=== PATIENT | female | born 1990 | race Asian ===

== ENCOUNTER 2017-01-06 17:26 | Emergency (ER) | payer SELFPAY ==
[~2017-01-06] VITALS: Ht 160 cm; Wt 49.6 kg
[2017-01-06 17:34] VITALS: TEMP 36.9; Ht 160 cm; Wt 49.6 kg
[2017-01-06] MEDS ORDERED: SODIUM CHLORIDE 0.9% 1000ML 1,000 ML IV STA (18:13)
--- NOTE | 2017-01-06 18:26 | EMERGENCY ROOM VISIT NOTE ---
History Report prepared by Shanice: Jane Weinstein Under the Supervision of: Dr. Chiki Gary D.O. First contact with patient: 18:02 Chief Complaint: ABDOMINAL PAIN Stated Complaint: PAIN UNDER BELLY BUTTON Nursing Triage Summary: Abd pain. Pt states she had a positive test. Pain was there in the morning, none now. History of Present Illness The patient is a 26 year old female who presents to the Emergency Room with complaints of intermittent abdominal pain for the past 4 days. The pain is present under her belly button. She had a positive test 2 days ago. She has been 1 time before and had a full term baby. She did not have this type of pain with her first . She states that the pain feels like her premenstrual cramps. Her last period was 1 month ago. She denies having any pain currently. She has had some dizziness and lightheadedness when she stands up sometimes. She denies any urinary symptoms, vaginal bleeding, back pain, or fever. She denies any previous medical problems or surgeries. She denies any tobacco or alcohol use. Source of History: patient Onset: 4 days Position: abdomen Quality: cramping Timing: intermittent Associated Symptoms: No fevers, No back pain, No urinary symptoms Note: Pt has lightheadedness and dizziness when standing. Pt denies vaginal bleeding. Review of Systems See HPI for pertinent positives & negatives. A total of 10 systems reviewed and were otherwise negative. Past Medical & Surgical Surgical Problems: (1) Hx of LASIK Family History No pertinent family history stated. Social History Smoking Status: Never Smoker Housing Status: lives with family Current/Historical Medications Scheduled Cephalexin Monohydrate (Keflex), 500 MG PO QID Multivitamin (Multivitamin), 1 TAB PO DAILY Allergies Coded Allergies: No Known Allergies (Unverified , 01/06/17) Physical Exam Vital Signs Date Time Temp Pulse Resp B/P (MAP) Pulse Ox O2 Delivery O2 Flow Rate FiO2 01/06/17 21:02 65 18 106/70 98 01/06/17 19:34 66 16 102/56 98 Room Air 01/06/17 17:34 36.9 102 18 107/69 100 Room Air Physical Exam GENERAL: Patient is awake, alert, and in no acute distress. Patient is resting comfortably and showing no signs of anxiety EYES: The conjunctivae are clear. The pupils are round and reactive. EARS, NOSE, MOUTH AND THROAT: The nose is without any evidence of any deformity. Mucous membranes are moist tongue is midline NECK: The neck is nontender and supple. RESPIRATORY: Normal respiratory effort is noted there is no evidence of wheezing rhonchi or rales CARDIOVASCULAR: Regular rate and rhythm noted there no murmurs rubs or gallops normal S1 normal S2 GASTROINTESTINAL: The abdomen is soft with RLQ and suprapubic tenderness to palpation, no guarding or rigidity. Bedside US failed to reveal definite intrauterine . MUSCULOSKELETAL/EXTREMITIES: There is no evidence of gross deformity full range of motion is noted in the hips and shoulders SKIN: There is no obvious evidence of any rash. There are no petechiae, pallor or cyanosis noted. NEUROLOGIC: Patient is awake alert and oriented x3 Medical Decision & Procedures ER Provider Diagnostic Interpretation: Radiology results as stated below per my review and radiologist interpretation: APPENDIX ULTRASOUND HISTORY: Right lower quadrant pain. . COMPARISON: None. FINDINGS: Transabdominal scanning of the right lower quadrant was performed. The appendix was not identified. A small amount of fluid was noted within the right lower quadrant. IMPRESSION: 1. Nonvisualization of the appendix. This study is nondiagnostic in regards to evaluation for acute appendicitis. 2. Small amount of fluid within the right lower quadrant. Electronically signed by: Brandin Ferrer M.D. 01/06/2017 7:25 PM Dictated Date/Time: 01/06/2017 7:25 PM FIRST TRIMESTER ULTRASOUND CLINICAL HISTORY: . Pain. COMPARISON STUDY: No previous studies for comparison. TECHNIQUE: Transabdominal sonography of the pelvis was performed. The patient deferred transvaginal imaging. FINDINGS: Evaluation is suboptimal given the lack of transvaginal imaging. The uterus measures 10.6 x 6.3 x 6.8 cm. The endometrium is thickened and heterogeneous, measuring 3.5 cm in thickness. Note was made of a cystic structure within the upper aspect of the endometrium with a mean diameter of 0.51 cm which likely reflects a gestational sac. No pole or yolk sac was identified. An adjacent 0.81 cm hypoechoic focus may reflect a tiny subchorionic hematoma. The right ovary was normal, measuring 3.1 x 1 x 2.7 cm and the left ovary measured 4.2 x 3.7 x 2.9 cm. There is a 2.2 cm complex left ovarian lesion which may reflect a corpus luteal cyst. Color flow is identified within each ovary. IMPRESSION: 1. Probable intrauterine gestational sac identified with a mean sac diameter of 0.51 cm. No pole identified at this time. Suspected tiny subchorionic hematoma. Thickened, heterogeneous endometrium. The findings may reflect a normal early intrauterine gestation. Clinical follow-up, including serial beta hCG levels, is recommended. 2. Suboptimal evaluation given the lack of transvaginal imaging. 3. Corpus luteal/hemorrhagic cyst within the left ovary. Electronically signed by: Brandin Ferrer M.D. 01/06/2017 7:24 PM Dictated Date/Time: 01/06/2017 7:19 PM Laboratory Results 01/06/17 18:20 Red Blood Count 4.38, Mean Corpuscular Volume 85.8, Mean Corpuscular Hemoglobin 28.5, Mean Corpuscular Hemoglobin Concent 33.2, Mean Platelet Volume 9.1, Neutrophils (%) (Auto) 60.6, Lymphocytes (%) (Auto) 28.2, Monocytes (%) (Auto) 9.4, Eosinophils (%) (Auto) 1.5, Basophils (%) (Auto) 0.2, Neutrophils # (Auto) 5.57, Lymphocytes # (Auto) 2.59, Monocytes # (Auto) 0.86, Eosinophils # (Auto) 0.14, Basophils # (Auto) 0.02 01/06/17 18:20 Test 01/06/17 18:20 White Blood Count 9.19 K/uL (4.8-10.8) Red Blood Count 4.38 M/uL (4.2-5.4) Hemoglobin 12.5 g/dL (12.0-16.0) Hematocrit 37.6 % (37-47) Mean Corpuscular Volume 85.8 fL (80-100) Mean Corpuscular Hemoglobin 28.5 pg (25-34) Mean Corpuscular Hemoglobin Concent 33.2 g/dl (32-36) Platelet Count 347 K/uL (130-400) Mean Platelet Volume 9.1 fL (7.4-10.4) Neutrophils (%) (Auto) 60.6 % Lymphocytes (%) (Auto) 28.2 % Monocytes (%) (Auto) 9.4 % Eosinophils (%) (Auto) 1.5 % Basophils (%) (Auto) 0.2 % Neutrophils # (Auto) 5.57 K/uL (1.4-6.5) Lymphocytes # (Auto) 2.59 K/uL (1.2-3.4) Monocytes # (Auto) 0.86 K/uL (0.11-0.59) Eosinophils # (Auto) 0.14 K/uL (0-0.5) Basophils # (Auto) 0.02 K/uL (0-0.2) RDW Standard Deviation 42.9 fL (36.4-46.3) RDW Coefficient of Variation 13.6 % (11.5-14.5) Immature Granulocyte % (Auto) 0.1 % Immature Granulocyte # (Auto) 0.01 K/uL (0.00-0.02) Prothrombin Time 10.4 SECONDS (9.0-12.0) Prothromb Time International Ratio 1.0 (0.9-1.1) Activated Partial Thromboplast Time 26.3 SECONDS (21.0-31.0) Partial Thromboplastin Ratio 1.0 Urine Color YELLOW Urine Appearance CLEAR (CLEAR) Urine pH 6.0 (4.5-7.5) Urine Specific [place] 1.026 (1.000-1.030) Urine Protein NEG (NEG) Urine Glucose (UA) NEG (NEG) Urine Ketones NEG (NEG) Urine Occult Blood NEG (NEG) Urine Nitrite NEG (NEG) Urine Bilirubin NEG (NEG) Urine Urobilinogen NEG (NEG) Urine Leukocyte Esterase SMALL (NEG) Urine WBC (Auto) >30 /hpf (0-5) Urine RBC (Auto) 0-4 /hpf (0-4) Urine Hyaline Casts (Auto) 5-10 /lpf (0-5) Urine Epithelial Cells (Auto) >30 /lpf (0-5) Urine Bacteria (Auto) 1+ (NEG) Urine Pathogenic Casts /lpf (0) Anion Gap 6.0 mmol/L (3-11) Est Creatinine Clear Calc Drug Dose 123.5 ml/min Estimated GFR () > 150.0 Estimated GFR (Non- 131.3 BUN/Creatinine Ratio 18.1 (10-20) Calcium Level 8.5 mg/dl (8.5-10.1) Total Bilirubin 0.2 mg/dl (0.2-1) Aspartate Amino Transf (AST/SGOT) 6 U/L (15-37) Alanine Aminotransferase (ALT/SGPT) 19 U/L (12-78) Alkaline Phosphatase 56 U/L (45-117) Total Protein 7.2 gm/dl (6.4-8.2) Albumin 3.7 gm/dl (3.4-5.0) Globulin 3.5 gm/dl (2.5-4.0) Albumin/Globulin Ratio 1.1 (0.9-2) Human Chorionic Gonadotropin, Quant 3247 mIU/mL Laboratory results per my review. Medications Administered Medications (Trade) Dose Ordered Sig/Brigid Route Start Time Stop Time Status Last Admin Dose Admin Sodium Chloride 1,000 ml @ 999 mls/hr Q1H1M STAT IV 01/06/17 18:13 01/06/17 19:13 DC 01/06/17 18:13 999 MLS/HR Ceftriaxone Sodium (Rocephin Inj) 1 gm NOW STAT IV 01/06/17 20:03 01/06/17 20:04 DC 01/06/17 20:17 1 GM ED Course 1806: The patient was evaluated in room A11B. A complete history and physical examination were performed. 181: NSS 1000 ml @ 999 mls/hr IV. 2001: Upon reevaluation, the patient is resting comfortably. I discussed the results and treatment plan with her. She verbalized agreement of the treatment plan. She was discharged home. 2002: Rocephin Inj 1 gm IV. 2007: I discussed the patient's case with Dr. Ramos, [facility] [place] Lathing Supervisor. She recommends follow up in 48 hours and return for worsening symptoms. Medical Decision Prior records/ancillary studies reviewed. Triage Nursing notes reviewed. The patient's history was concerning for abdominal pain. Differential diagnosis: Etiologies such as appendicitis, diverticulitis, PUD, biliary pathology, UTI, pancreatitis, obstruction, mesenteric ischemia, aortic pathology, infections, inflammatory bowel disease, renal colic, as well as others were entertained. The patient is a 26-year-old female who presented to the emergency department for evaluation of pelvic pain. The patient briefly found out she was by a urinary test. The patient also had right-sided abdominal pain but her physical exam was not consistent with an acute surgical abdomen and her white blood cell count was not elevated. I discussed the patient's laboratory and radiographic studies with her. I discussed her case with the on-call [employer] physician. At this time I recommended 48 hour follow-up for repeat ultrasound as well as beta hCG. I also recommended that she return to the emergency Department immediately if any signs that would be consistent with ectopic develop such as worsening pain syncope dizziness or if need arises. The patient was also evaluated by the emergency department comp field case manager. Medication Reconcilliation Current Medication List: was personally reviewed by me Blood Pressure Screening Patient's blood pressure: Normal blood pressure Blood pressure disposition: Did not require urgent referral Consults Time Called: 2002 Consulting Physician: Dr. Ramos, [facility] [place] Lathing Supervisor Returned Call: 2007 I discussed the patient's case with her. She recommends follow up in 48 hours and return for worsening symptoms. Impression Primary Impression: Pelvic pain Additional Impressions: UTI (urinary tract infection) Threatened miscarriage in early Scribe Attestation The scribe's documentation has been prepared under my direction and personally reviewed by me in its entirety. I confirm that the note above accurately reflects all work, treatment, procedures, and medical decision making performed by me. Departure Information Dispostion Home / Self-Care Prescriptions Cephalexin Monohydrate (KEFLEX) 500 Mg Cap 500 MG PO QID, #28 CAP Prov: Chiki Gary, DO 01/06/17 Referrals No Doctor, Assigned (PCP) Rose Ramos MD Forms HOME CARE DOCUMENTATION FORM, IMPORTANT VISIT INFORMATION Patient Instructions ED Abdominal Pain Rule Out Ectopic, My [facility], Urinary Tract Infecs Women Additional Instructions Follow-up with the [employer] physician on Sunday for reevaluation. You will require a repeat ultrasound as well as repeat blood test to further evaluate the cause of your pain. Rest and avoid any strenuous activity. Start taking the antibiotic tomorrow for the urinary tract infection. Return to the emergency department immediately if symptoms change worsen or the need arises. Problem Qualifiers
[2017-01-06 18:43] LABS: BASO % 0.2 %; BASO ABS # 0.02 K/uL (0-0.2); COMPLETE YES; EOS % 1.5 %; HEMATOCRIT 37.6 % (37-47); IG% 0.1 %; LYMPH % 28.2 %; LYMPH ABS # 2.59 K/uL (1.2-3.4); MEAN CELL VOLUME 85.8 fL (80-100); MEAN CORPUSCULAR HEMOGLOBIN 28.5 pg (25-34); MEAN CORPUSCULAR HGB CONC 33.2 g/dl (32-36); MEAN PLATELET VOLUME 9.1 fL (7.4-10.4); MONO % 9.4 %; NEUT % 60.6 %; PLATELET COUNT 347 K/uL (130-400); RED BLOOD COUNT 4.38 M/uL (4.2-5.4); WHITE BLOOD COUNT 9.19 K/uL (4.8-10.8)
[2017-01-06 18:45] LABS: URINE APPEARANCE CLEAR (CLEAR); URINE BILIRUBIN NEG (NEG); URINE COLOR YELLOW; URINE EPITHELIAL CELL AUTO >30 /lpf (0-5); URINE NITRITE NEG (NEG); URINE SPECIFIC GRAVITY 1.026 (1.000-1.030); UROBILINOGEN NEG (NEG)
[2017-01-06 18:47] LABS: MANUAL MICROSCOPIC REQUIRED? NO; REVIEW REQ? YES
[2017-01-06 18:53] LABS: PROTHROMBIN TIME (PATIENT) 10.4 SECONDS (9.0-12.0)
[2017-01-06 19:03] LABS: ALT/SGPT 19 U/L (12-78); AST/SGOT 6 U/L (15-37); BLOOD UREA NITROGEN 10 mg/dl (7-18); BUN/CREATININE RATIO 18.1 (10-20); CALCIUM 8.5 mg/dl (8.5-10.1); CARBON DIOXIDE 25 mmol/L (21-32); CHLORIDE 107 mmol/L (98-107); CREATININE 0.55 mg/dl (0.60-1.20); GLUCOSE 65 mg/dl (70-99); POTASSIUM 3.4 mmol/L (3.5-5.1); SODIUM 138 mmol/L (136-145)
[2017-01-06 19:06] LABS: ALB/GLOB RATIO 1.1 (0.9-2); ALKALINE PHOSPHATASE 56 U/L (45-117)
--- NOTE | 2017-01-06 19:26 | DIAGNOSTIC IMAGING REPORT ---
FIRST TRIMESTER ULTRASOUND CLINICAL HISTORY: . Pain. COMPARISON STUDY: No previous studies for comparison. TECHNIQUE: Transabdominal sonography of the pelvis was performed. The patient deferred transvaginal imaging. FINDINGS: Evaluation is suboptimal given the lack of transvaginal imaging. The uterus measures 10.6 x 6.3 x 6.8 cm. The endometrium is thickened and heterogeneous, measuring 3.5 cm in thickness. Note was made of a cystic structure within the upper aspect of the endometrium with a mean diameter of 0.51 cm which likely reflects a gestational sac. No pole or yolk sac was identified. An adjacent 0.81 cm hypoechoic focus may reflect a tiny subchorionic hematoma. The right ovary was normal, measuring 3.1 x 1 x 2.7 cm and the left ovary measured 4.2 x 3.7 x 2.9 cm. There is a 2.2 cm complex left ovarian lesion which may reflect a corpus luteal cyst. Color flow is identified within each ovary. IMPRESSION: 1. Probable intrauterine gestational sac identified with a mean sac diameter of 0.51 cm. No pole identified at this time. Suspected tiny subchorionic hematoma. Thickened, heterogeneous endometrium. The findings may reflect a normal early intrauterine gestation. Clinical follow-up, including serial beta hCG levels, is recommended. 2. Suboptimal evaluation given the lack of transvaginal imaging. 3. Corpus luteal/hemorrhagic cyst within the left ovary. Electronically signed by: Bradnin Ferrer M.D. 01/06/2017 7:24 PM Dictated Date/Time: 01/06/2017 7:19 PM
--- NOTE | 2017-01-06 19:27 | DIAGNOSTIC IMAGING REPORT ---
APPENDIX ULTRASOUND HISTORY: Right lower quadrant pain. . COMPARISON: None. FINDINGS: Transabdominal scanning of the right lower quadrant was performed. The appendix was not identified. A small amount of fluid was noted within the right lower quadrant. IMPRESSION: 1. Nonvisualization of the appendix. This study is nondiagnostic in regards to evaluation for acute appendicitis. 2. Small amount of fluid within the right lower quadrant. Electronically signed by: Brandin Ferrer M.D. 01/06/2017 7:25 PM Dictated Date/Time: 01/06/2017 7:25 PM
[2017-01-06] MEDS ORDERED: MULT-506 PO (19:47)
[2017-01-06] MEDS ORDERED: CEFTRIAXONE SOD INJ 1 GM ADDVIAL IV STA (20:03)
[2017-01-06] MEDS ORDERED: CEPH500C2 PO (20:18)
[2017-01-06 21:02] VITALS: BP 106/70; PULSE 65; O2SAT 98
== END 2017-01-06 21:00 | disposition home or self-care (01) ==
LOC: C.EDB 17:27 → C.EDA 21:00
DX: O20.0 Threatened abortion (principal); O23.41 Unspecified infection of urinary tract in pregnancy, first trimester; R10.2 Pelvic and perineal pain; Z3A.00 Weeks of gestation of pregnancy not specified

== ENCOUNTER → 2017-05-01 | Outpatient (CLI) | payer OTHER ==
[~2017-05-01] MED LIST: CEPH500C2 PO; MULT-506 PO
== END | disposition home or self-care (01) ==
LOC: C.LABSPEC 16:11
PROVIDERS: ATTEND Obstetrics & Gynecology
DX: Z34.82 Encounter for supervision of other normal pregnancy, second trimester (principal); J06.0 Acute laryngopharyngitis

== ENCOUNTER → 2017-06-28 | Outpatient (CLI) | payer OTHER ==
[2017-06-28 12:19] LABS: HEMATOCRIT 33.4 % (37-47); HEMOGLOBIN 11.2 g/dL (12.0-16.0)
== END | disposition home or self-care (01) ==
LOC: C.LAB1850 10:37
PROVIDERS: ATTEND Obstetrics & Gynecology
DX: Z34.83 Encounter for supervision of other normal pregnancy, third trimester (principal)

== ENCOUNTER → 2017-08-16 | Outpatient (CLI) | payer OTHER ==
[~2017-08-16] MED LIST changes: -CEPH500C2 PO
== END | disposition home or self-care (01) ==
LOC: C.LABSPEC 17:39
PROVIDERS: ATTEND Obstetrics & Gynecology
DX: Z34.83 Encounter for supervision of other normal pregnancy, third trimester (principal)

== ENCOUNTER 2017-09-07 12:33 | Inpatient (IN) | payer OTHER ==
[~2017-09-07] VITALS: Ht 154.9 cm; Wt 67.1 kg
[2017-09-07] MEDS ORDERED: LACTATED RINGER'S 1000ML 1,000 ML IV PRN (13:03)
[2017-09-07] MEDS ORDERED: LACTATED RINGER'S 1000ML 1,000 ML IV SCH (13:03)
[2017-09-07] MEDS ORDERED: LACTATED RINGER'S 1000ML 500 ML IV PRN ×2 (13:03→20:24)
[2017-09-07] MEDS ORDERED: OXYTOCIN 30 UNITS/500ML NSS IV PRN ×2 (13:15→20:45)
[2017-09-07 13:30] LABS: HEMATOCRIT 34.1 % (37-47); HEMOGLOBIN 11.4 g/dL (12.0-16.0); MEAN CORPUSCULAR HEMOGLOBIN 28.1 pg (25-34); MEAN CORPUSCULAR HGB CONC 33.4 g/dl (32-36); PLATELET COUNT 326 K/uL (130-400); RED CELL DISTRIBUTION WIDTH CV 14.5 % (11.5-14.5); RED CELL DISTRIBUTION WIDTH SD 44.7 fL (36.4-46.3); WHITE BLOOD COUNT 9.34 K/uL (4.8-10.8)
[2017-09-07 14:05] VITALS: Ht 154.9 cm; Wt 67.1 kg
[2017-09-07] MEDS ORDERED: PRENTAB26 PO ×2 (14:29)
[2017-09-07] MEDS ORDERED: BUPIVACAINE 0.25% 30 ML VIAL ONE (19:06)
[2017-09-07] MEDS ORDERED: EpHEDrine SULFATE INJ 50 MG/ML AMP ONE (19:06)
[2017-09-07] MEDS ORDERED: FENTANYL 2MCG/ML ROPIV 1.25MG/ML 100ML BAG EPI ONE (19:07)
[2017-09-07] MEDS ORDERED: FENTANYL CITRATE INJ 50 MCG/1 ML 2 ML VIAL ONE (19:07)
[2017-09-07] MEDS ORDERED: NALOXONE HCL INJ 1 MG in SODIUM CHLORIDE 0.9% 1000ML 1,000 ML IV PRN (20:24)
[2017-09-07] MEDS ORDERED: FENTANYL 2MCG/ML ROPIV 1.25MG/ML 100ML BAG EPI PRN (20:30)
[2017-09-07] MEDS ORDERED: NALOXONE HCL INJ 0.4 MG/1 ML VIAL/CARP IV PRN (20:30)
[2017-09-07] MEDS ORDERED: EpHEDrine SULFATE INJ 50 MG/ML AMP IV PRN (20:30)
[2017-09-07] MEDS ORDERED: NALBUPHINE HCL INJ 10 MG/ML AMP IV PRN (20:30)
[2017-09-07] MEDS ORDERED: DiphenhydrAMINE HCL 50 MG/ML VIAL IV PRN (20:30)
[2017-09-07] MEDS ORDERED: ONDANSETRON INJ 2 MG/ML 2 ML VIAL IV PRN (20:30)
[2017-09-07] MEDS ORDERED: ACETAMINOPHEN/CODEINE 300/30MG TAB PO PRN ×2 (20:45)
[2017-09-07] MEDS ORDERED: LANOLIN OINT EXT PRN (20:45)
[2017-09-07] MEDS ORDERED: ACETAMINOPHEN 325 MG TAB PO PRN (20:45)
[2017-09-07] MEDS ORDERED: BENZOCAINE 20% AER SPR 82.5 GM CAN EXT PRN (20:45)
[2017-09-07] MEDS ORDERED: DIPHTHERIA/TETANUS/PERTUSSIS 0.5 ML SYR/VIAL IM. ONE (20:45)
[2017-09-07] MEDS ORDERED: SUPERCREAM 0.870 % 15GM JAR EXT PRN (20:45)
[2017-09-07] MEDS ORDERED: IBUPROFEN 600 MG TAB PO PRN (20:45)
[2017-09-07] MEDS ORDERED: HYDROCORTISONE ACETATE 25 MG SUPP PR PRN (20:45)
--- NOTE | 2017-09-07 21:43 | Anesthesia Procedure Note ---
Anesthesia Epidural Removal Nt Date & Time Sep 07, 2017 at 21:43 Notes Mental Status: alert / awake / arousable, participated in evaluation Nausea / Vomiting: adequately controlled Pain: adequately controlled Airway Patency, RR, SpO2: stable & adequate BP & HR: stable & adequate Hydration State: stable & adequate Neuraxial Anesthesia: was administered Anesthetic Complications: no major complications apparent, pt satisfied with anesthetic care Epidural: removed without complications, with tip intact
--- NOTE | 2017-09-07 22:14 | DELIVERY SUMMARY ---
DATE OF OPERATION: 09/07/2017 FINDINGS: Viable male with Apgars of 8 and 9. Baby delivered precipitously over a midline second degree laceration. True knot in cord noted. Cord blood samples obtained. Placenta delivered spontaneously. Midline second degree laceration repaired with 4-0 Vicryl in a routine fashion. Estimated blood loss 300 mL. LABOR NOTE: The patient is a 27-year-old 2, para 1 with an EDC of 09/12/2017, 39+ weeks gestational age presented to labor and delivery with spontaneous rupture of membranes. The patient states the membrane ruptured at approximately 1200 hours on day of delivery. She described the fluid as clear with no contractions or bleeding. The patient has had a benign course. Her blood type A positive and antibody negative, rubella immune, hepatitis B negative. She had negative 2-hour glucose tolerance test and a negative third trimester beta strep culture. Prior to admission, the patient was 1 cm dilated, 50% effaced, -2 station with gross rupture. Tracing was category 1. Because of the ruptured membranes at term, Pitocin was initiated per induction protocol. Pitocin was increased to get an adequate labor pattern. The patient was about 3-4 cm at which point she became uncomfortable, anesthesia was consulted and an epidural was placed. Shortly after that, the patient pushed uncontrollably in bed, delivering a viable male infant. Cord was clamped and cut. True knot in the cord was noted. Cord blood sample was noted. Placenta was delivered spontaneously. A midline second degree laceration was repaired with 4-0 Vicryl in a routine fashion. Estimated blood loss 300 mL. Sponge and needle count was correct. I attest to the content of the Intraoperative Record and any orders documented therein. Any exception s are noted below.
[2017-09-07 23:50] VITALS: BP 105/67; PULSE 100; TEMP 36.9; O2SAT 97
[2017-09-08 04:10] VITALS: BP 94/56; PULSE 92; TEMP 37.2; O2SAT 97
[2017-09-08 06:56] LABS: HEMATOCRIT 33.9 % (37-47); HEMOGLOBIN 11.3 g/dL (12.0-16.0)
--- NOTE | 2017-09-08 07:44 | Progress Note ---
Subjective Sep 08, 2017. Subjective conversation w/ patient, physical exam Ambulation: ambulating normally Voiding: no voiding problems Passing Gas: No Diet Tolerance: Regular Diet Lochia: Small Feeding Type: Breast Feeding Pain: minimal, cramping pain, especially with breast feeding Comment: Seen and assessed at bedside, no acute events overnight Review of Systems Constitutional: No fever, No chills Respiratory: No cough, No shortness of breath Cardiac: No chest pain, No edema Abdomen: No pain, No nausea, No vomiting no headache or calf pain Objective Vital Signs Date Time Temp Pulse Resp B/P (MAP) Pulse Ox O2 Delivery O2 Flow Rate FiO2 09/08/17 04:10 37.2 92 16 94/56 (69) 97 Room Air 09/07/17 23:50 36.9 100 18 105/67 (80) 97 Room Air 09/07/17 23:50 Room Air Physical Exam General Appearance: WELL-APPEARING, NO APPARENT DISTRESS Respiratory/Chest: chest non-tender, lungs clear, normal breath sounds Cardiovascular: regular rate, rhythm, no edema, no murmur Abdomen: normal bowel sounds, non tender, soft Fundus: Firm, Non-Tender, Relation to Umbilicus (at to 1 below) Extremities: normal range of motion, non-tender, normal inspection, no pedal edema, no calf tenderness Laboratory Results Last 24 Hours Test 09/07/17 13:17 09/08/17 06:18 White Blood Count 9.34 K/uL Red Blood Count 4.06 M/uL Hemoglobin 11.4 g/dL 11.3 g/dL Hematocrit 34.1 % 33.9 % Mean Corpuscular Volume 84.0 fL Mean Corpuscular Hemoglobin 28.1 pg Mean Corpuscular Hemoglobin Concent 33.4 g/dl RDW Standard Deviation 44.7 fL RDW Coefficient of Variation 14.5 % Platelet Count 326 K/uL Mean Platelet Volume 9.0 fL Medications Current Inpatient Medications Medications (Trade) Dose Ordered Sig/Brigid Route Start Time Stop Time Status Last Admin Dose Admin Lactated Ringer's 1,000 ml @ 125 mls/hr Q8H IV 09/07/17 13:03 09/09/17 13:02 09/07/17 13:37 125 MLS/HR Lactated Ringer's 1,000 ml @ 999 mls/hr Q1H1M PRN IV 09/07/17 13:03 10/07/17 13:02 Lactated Ringer's 500 ml @ 999 mls/hr Q31M PRN IV 09/07/17 13:03 10/07/17 13:02 Oxytocin (Pitocin IV) 30 units UD PRN IV 09/07/17 20:45 10/07/17 20:44 Benzocaine (Dermoplast Aero Spr) 1 appln PRN PRN EXT 09/07/17 20:45 10/07/17 20:44 09/07/17 23:50 1 APPLN Cocaine HCl (Supercream 0.870% Cr) BID PRN EXT 09/07/17 20:45 09/21/17 20:44 Hydrocortisone Acetate (Anusol Hc Supp) 25 mg BID PRN AR 09/07/17 20:45 10/07/17 20:44 Lanolin (Lanolin Oint) PRN PRN EXT 09/07/17 20:45 10/07/17 20:44 Prenat Multivit/ Dredging Inspector/Iron/Folic Ac ( Vitamin Tab) 1 tab DAILY PO 09/08/17 08:00 10/08/17 07:59 Ibuprofen (Motrin Tab) 600 mg Q4H PRN PO 09/07/17 20:45 10/07/17 20:44 Acetaminophen (Tylenol Tab) 650 mg Q6H PRN PO 09/07/17 20:45 10/07/17 20:44 Acetaminophen/ Codeine Phosphate (Tylenol w/ Codeine #3 Tab) 1 tab Q4H PRN PO 09/07/17 20:45 10/07/17 20:44 Acetaminophen/ Codeine Phosphate (Tylenol w/ Codeine #3 Tab) 2 tab Q4H PRN PO 09/07/17 20:45 10/07/17 20:44 Bisacodyl (Dulcolax Tab) 5 mg 20 PO 09/08/17 20:00 09/08/17 20:01 Docusate Sodium (coLACE CAP) 100 mg BID PO 09/08/17 08:00 10/08/17 07:59 Ferrous Sulfate (Feosol Tab) 325 mg DAILY PO 09/08/17 08:00 10/08/17 07:59 Assessment and Plan Problem List Medical Problems: (1) Pelvic pain Status: Acute (2) Status: Acute (3) UTI (urinary tract infection) Status: Acute Post- Day#: 1 Continue Routine Care: 27 yo PPD 1 s/p Pt doing well Continue routine care Encourage ambulation, breast feeding Pain control with meds prn Resident Physician Supervision Note: I interviewed and examined the patient. Discussed with Dr. Costa and agree with findings and plan as documented in the note. Any exceptions or clarifications are listed here: Documented By: Cam Roque Resident Tracking Resident Involvement: Resident Care Provided Care Provided: OB Delivery
[2017-09-08 08:30] VITALS: BP 103/66; PULSE 92; TEMP 36.9
[2017-09-08] MEDS: FERROUS SULFATE 325 MG TAB PO SCH (08:51)
[2017-09-08] MEDS: PRENATAL VITAMIN TAB PO SCH (08:52)
[2017-09-08] MEDS: DOCUSATE SODIUM 100 MG CAP PO SCH ×2 (08:52→20:38)
[2017-09-08 12:00] VITALS: BP 109/72; PULSE 81; TEMP 36.8
--- NOTE | 2017-09-08 14:48 | Discharge Instructions ---
Discharge Instructions Date of Service Sep 08, 2017. Admission Reason for Admission: IUP Discharge Discharge Diagnosis / Problem: normal labor & delivery Discharge Goals Goal(s): Routine recovery after delivery Medications Continue Dispensed Medications: supercream, dermaplast, tucks, lansinoh Activity Recommendations Activity Limitations: per Instructions/Follow-up section . Instructions / Follow-Up Instructions / Follow-Up ACTIVITY RECOMMENDATIONS: * Gradual return to full activity over the next 2-3 weeks. * No lifting - nothing heavier than baby over the next 2-3 weeks. * Do not engage in vigorous exercise, sexual activity or sports until cleared by your physician. * Do not drive or operate any motorized equipment until cleared by your physician. * You may shower/bathe daily. MEDICATIONS: For discomfort or pain, you may use Acetaminophen (Tylenol), Ibuprofen (Advil), or Naproxen (Aleve) following the package directions. For constipation you may use Colace following the package directions. BREAST CARE: If you are not breast feeding: * Wear a supportive bra 24 hours a day for one to two weeks. * Avoid stimulating your breasts and nipples as much as possible during the first few weeks after delivery. * When taking a shower, have the warm water hit your back, not breasts. * When your breasts feel full, apply ice packs. Usually three to four times a day helps ease the discomfort. * Take a mild pain medication (Tylenol / Motrin) when you are uncomfortable. If breast feeding: * Use breast milk to lubricate nipples. Lansinoh cream may be used for sore nipples. You do not need to remove cream prior to breast feeding. If using a different brand of cream, check the label for directions regarding removal of cream prior to nursing. * Wear a supportive bra. * If having problems with breasts or breast feeding, call a development consultant or your health care provider. EPISIOTOMY CARE: After delivery, if you have an episiotomy (stitches), the following steps will ease discomfort and aid healing. * For the first 24 hours after delivery, place ice packs next to your episiotomy to help reduce swelling. * After the first 24 hour-period, sitz baths, either portable or in the tub, are suggested. A shower with a shower arm sprayed over the episiotomy may be comforting. * Alfreda care should be done after each voiding and bowel movement. Squirt warm water from a plastic bottle over the perineum (region of the body between the anus and urinary opening) and pat dry. * Use Dermoplast to ease discomfort. Shake container. Institute directly over the episiotomy. Place a Tucks on a clean sanitary pad next to your episiotomy. SPECIAL CARE INSTRUCTIONS: When you are discharged from the hospital, it is important for you to follow the instructions listed below: * During the first week at home, you should be able to care for yourself and your baby. In addition, the usual light household activities are encouraged. * Limit your activities to the way you feel. Do not try to clean the house or move furniture. Be sensible. * If you actively engage in sports and have done so up until the time of your delivery, you may resume these activities as soon as you feel able. This may take up to one month or even longer. Use good judgment. * Continue to take your vitamins for at least six weeks after the of your baby. * Your diet need not be limited unless you were on a special diet before your delivery. Breast-feeding mothers need around 2500 calories per day and at least 64-80 ounces of fluid per day (8 to 10 glasses). * You should eat foods from the four major food groups. Crash diets or fad diets are to be avoided. Eating lean meats, fresh fruits and vegetables, low-fat dairy products, high fiber foods and a regular exercise program, will help you get back to your pre- weight without putting your health at risk. * Constipation is sometimes a problem after delivery. Take a mild laxative as needed. If breast feeding, Milk of Magnesia is acceptable to use. You may use a suppository or Fleets enema if no episiotomy. * A daily shower or tub bath is suggested. Be sure to thoroughly and gently dry the perineum. * A bloody vaginal discharge will usually continue until around four weeks post . A small amount of bleeding may continue for as long as six weeks. Vaginal discharge changes from the bright red bleeding after delivery to pink then brownish and finally yellowish-pink before becoming white and disappearing. * Bleeding may increase with activity. Your first period may come in 4-8 weeks. If you are breast feeding, your period may be delayed even longer. * [place] (sex) can begin whenever both you and your partner feel comfortable and do not have any form of genital infection. It is recommended that you wait at least six weeks for internal and external healing to occur. If you have questions, please talk to your health care practitioner. A condom should be used to prevent infection and . * Foreplay, gentle intercourse and lubrication is very important the first several times to prevent pain. A water-based lubricant such as K-Y jelly or Astroglide may be used. * If you have RH negative blood and your baby is RH positive, you will receive RHOGAM by injection prior to discharge. The nurse will give you a card to keep with you that has the date and place that you received RHOGAM after delivery. * During your care, you had a Rubella screen done to check for the presence of rubella antibodies in your blood. If your test was negative, you will receive a Rubella vaccine prior to discharge. This vaccine may cause a fever, soreness at the injection site and flu-like symptoms. If these symptoms persist, notify your health care practitioner. is not advised for one month after a Rubella vaccine. * Verbalizes understanding of car seat law as reviewed with patient nursing. * Car Seat hand-out given and reviewed with patient by nursing. * Shaken baby information reviewed with patient by nursing. Call you doctor if: * Heavy bleeding (saturating several pads an hour) or passing clots the size of your fist. * A fever >101 degrees F (38.3 degrees C) on two occasions four hours apart and /or chills. * Unusual pain in the pelvic or vaginal areas. * "Baby Blues" lasting longer than two weeks. If you have any questions or concerns, call your health care practitioner at . FOLLOW UP VISIT: * Please call the office at to schedule a 6 week examination. It is important you keep this appointment. It is important for you to make arrangements for either yearly or twice yearly check-ups thereafter. Current Hospital Diet Patient's current hospital diet: Vegetarian Diet Discharge Diet Recommended Diet: Regular OB Diet Pending Studies Studies pending at discharge: no Medical Emergencies . Who to Call and When: Medical Emergencies: If at any time you feel your situation is an emergency, please call [phone] immediately. . Non-Emergent Contact Non-Emergency issues call your: Watchmaking Teacher . . "Provider Documentation" section prepared by Eryn Farah .
[2017-09-08] MEDS ORDERED: BISACODYL 5 MG TABEC PO SCH (20:00)
[2017-09-08 21:45] VITALS: BP 105/73; PULSE 88; TEMP 36.8
[2017-09-08 23:30] VITALS: BP 108/72; PULSE 80; TEMP 36.7; O2SAT 98
[2017-09-09 08:00] VITALS: BP 105/73; PULSE 73; TEMP 36.7
[2017-09-09] MEDS: PRENATAL VITAMIN TAB PO SCH (08:15)
[2017-09-09] MEDS: FERROUS SULFATE 325 MG TAB PO SCH (08:15)
[2017-09-09] MEDS: DOCUSATE SODIUM 100 MG CAP PO SCH (08:16)
--- NOTE | 2017-09-09 08:22 | Progress Note ---
Subjective Sep 09, 2017. Subjective conversation w/ patient Ambulation: ambulating normally Voiding: no voiding problems Passing Gas: Yes Diet Tolerance: Regular Diet Lochia: Small Feeding Type: Breast Feeding Review of Systems Constitutional: No fever, No chills, No sweats, No weight loss, No weakness, No fatigue, No problem reported Breast: No see HPI, No breast lump, No change in shape, No nipple discharge, No breast pain, No problem reported Abdomen: No pain, No nausea, No vomiting, No diarrhea, No constipation, No GI bleeding, No problem reported Female : No see HPI, No dysuria, No urinary frequency, No hematuria, No incontinence, No abnormal vaginal bleeding, No vaginal discharge, No problem reported Objective Vital Signs Date Time Temp Pulse Resp B/P (MAP) Pulse Ox O2 Delivery O2 Flow Rate FiO2 09/08/17 23:30 98 Room Air 09/08/17 23:30 36.7 80 18 108/72 (84) 98 Room Air 09/08/17 21:45 36.8 88 18 105/73 (84) Room Air 09/08/17 15:10 Room Air 09/08/17 12:00 36.8 81 16 109/72 (84) Room Air 09/08/17 08:30 Room Air 09/08/17 08:30 36.9 92 14 103/66 (78) Room Air Physical Exam General Appearance: WELL-APPEARING, NO APPARENT DISTRESS Abdomen: non tender, soft Fundus: Firm, Non-Tender, Relation to Umbilicus ( 2 below U) Extremities: no calf tenderness Assessment and Plan Problem List Medical Problems: (1) Pelvic pain Status: Acute (2) Status: Acute (3) UTI (urinary tract infection) Status: Acute Post- Day#: 2 Continue Routine Care: stable course discharge to home follow up in 6 weeks.
[2017-09-09 16:31] VITALS: BP_DIAS 73; PULSE 73; TEMP 36.7
== END 2017-09-09 16:40 | disposition home or self-care (01) | DRG 775 ==
LOC: C.LD 12:33 → C.OPB 12:33 → C.LD 13:04 → C.OBG 23:03 → EDSTATUS 09-12 12:31
PROVIDERS: ADMIT Obstetrics & Gynecology; ATTEND Obstetrics & Gynecology
PROC: 10E0XZZ Delivery of Products of Conception, External Approach (ICD-10-PCS; principal; 2017-09-07)
PROC: 0KQM0ZZ Repair Perineum Muscle, Open Approach (ICD-10-PCS; principal; 2017-09-07)
DX: O69.2XX0 Labor and delivery complicated by other cord entanglement, with compression, not applicable or unspecified (principal); O70.1 Second degree perineal laceration during delivery; Z3A.39 39 weeks gestation of pregnancy; Z37.0 Single live birth